=== PATIENT | female | born 1980 | race American Indian/Alaskan Native ===

== ENCOUNTER 2017-05-13 15:17 | Emergency (ER) | payer SELFPAY ==
[2017-05-13 15:37] VITALS: BP 122/61
--- NOTE | 2017-05-13 17:17 | XRay Report ---
FINAL REPORT EXAM: XR TIBIA FIBULA 2V RT HISTORY: pain r haddad TECHNIQUE: Four views right tibia and fibula Comparison: None FINDINGS: Normal bony mineralization. No fracture dislocation. No radiopaque foreign body or soft tissue gas. No cortical abnormality. There is no focal lytic or blastic lesion. IMPRESSION: Normal right tibia and fibula. No trauma was reported.
--- NOTE | 2017-05-13 17:18 | XRay Report ---
FINAL REPORT EXAM: XR ANKLE 3+V RT HISTORY: pain TECHNIQUE: Three views right ankle Comparison: None FINDINGS: Normal bony mineralization. No fracture or dislocation. Mortise is preserved. Plafond is intact. There is no ankle joint effusion identified. Soft tissue density of the distal Achilles tendon is identified. There is no radiopaque foreign body or soft tissue gas. IMPRESSION: No acute abnormality right ankle. Specifically, no fracture or dislocation.
--- NOTE | 2017-05-13 17:47 | XRay Report ---
FINAL REPORT EXAM: XR FOOT 3+V RT HISTORY: pain TECHNIQUE: Three views right foot Comparison: None FINDINGS: Normal bony mineralization. No acute fracture or dislocation. No radiopaque foreign body or soft tissue gas. IMPRESSION: No acute abnormality of the right foot identified.
[2017-05-13] MEDS ORDERED: TYLENOL PO ONE (19:12)
--- NOTE | 2017-05-13 19:14 | Emergency Department Report ---
ED Lower Extremity HPI - General Chief Complaint: Extremity Injury, Lower Stated Complaint: LEG/FOOT PAIN RIGHT Time Seen by Provider: 05/13/17 19:10 Source: patient Mode of arrival: Ambulatory Limitations: No Limitations - History of Present Illness Complaint: other (rle injury last pm. cooler door fell on and down her leg) -: Sudden Injury: Ankle: Right, Foot: Right Type of Injury: blunt Severity: mild Improves With: nothing Worsens With: nothing Context: direct blow - Related Data Previous Rx's Medication Instructions Recorded Last Taken Type Cyclobenzaprine [Flexeril] 10 mg PO TID #12 tab 01/12/13 Unknown Rx Hydrocodone Bit/Acetaminophen 1 each PO Q6H PRN #12 tablet 01/12/13 Unknown Rx [Lortab 5-500 Tablet] Allergies Allergy/AdvReac Type Severity Reaction Status Date / Time No Known Allergies Allergy Unverified 01/12/13 19:33 ED Review of Systems ROS: Stated complaint: LEG/FOOT PAIN RIGHT Other details as noted in HPI Comment: All other systems reviewed and negative Musculoskeletal: other (rle pain from mid haddad to foot) ED Past Medical Hx - Past Medical History Previous Medical History?: No - Surgical History Past Surgical History?: No - Social History Smoking Status: Current Some Day Smoker Substance Use Type: Alcohol - Medications Home Medications: Home Medications Medication Instructions Recorded Confirmed Last Taken Type Cyclobenzaprine [Flexeril] 10 mg PO TID #12 tab 01/12/13 Unknown Rx Hydrocodone Bit/Acetaminophen 1 each PO Q6H PRN #12 tablet 01/12/13 Unknown Rx [Lortab 5-500 Tablet] ED Physical Exam - General Limitations: No Limitations General appearance: alert - Head Head exam: Present: atraumatic - Eye Eye exam: Present: normal appearance - ENT ENT exam: Present: normal exam - Neck Neck exam: Present: normal inspection - Respiratory Respiratory exam: Present: normal lung sounds bilaterally - Cardiovascular Cardiovascular Exam: Present: regular rate - GI/Abdominal GI/Abdominal exam: Present: soft - Rectal Rectal exam: Present: deferred - Expanded Lower Extremity Exam Right Upper Leg exam: Present: normal inspection Knee exam: Present: normal inspection Lower Leg exam: Present: swelling, ecchymosis Ankle exam: Present: normal inspection Foot/Toe exam: Present: normal inspection 1 - mild swelling and contusion ED Course Vital Signs 05/13/17 15:35 Temperature 98.8 F Pulse Rate 94 H Respiratory 16 Rate Blood Pressure 122/61 O2 Sat by Pulse 98 Oximetry ED Lower Extremity MDM - Radiology Data Radiology results: report reviewed, image reviewed - Medical Decision Making see note - Differential Diagnosis ro fx Critical care attestation.: If time is entered above; I have spent that time in minutes in the direct care of this critically ill patient, excluding procedure time. ED Disposition Clinical Impression: Contusion Disposition: DC- TO HOME OR SELFCARE Is pt being admited?: No Does the pt Need Aspirin: No Condition: Stable Instructions: Contusion in Adults (ED) Additional Instructions: rest elevate warm compresses motrin or tylenol for pain Primary care physician if your symptoms persist after 72 hours. Note x-rays were all normal today Referrals: PRIMARY CARE, [Primary Care Provider] - 3-5 Days EZIO SALAS MD [Staff Physician] - 3-5 Days Time of Disposition: 19:13
== END 2017-05-13 19:22 | disposition home or self-care (01) ==
LOC: ED 15:17
DX: S80.11XA Contusion of right lower leg, initial encounter (principal); F17.200 Nicotine dependence, unspecified, uncomplicated; W31.89XA Contact with other specified machinery, initial encounter; Y93.89 Activity, other specified; Y99.8 Other external cause status; Y92.89 Other specified places as the place of occurrence of the external cause
CPT/HCPCS: 99283

== ENCOUNTER 2018-08-06 22:46 | Emergency (ER) | payer MEDICAID, OTHER ==
--- NOTE | 2018-08-06 22:57 | Emergency Department Report ---
Stated Complaint: RT SIDE ABD PAIN, 3MTHS PREG,VAG DC Time Seen by Provider: 08/06/18 22:55 - HPI History of Present Illness: preg g5 dark tinged vag dc mse completed MSE screening note: Focused history and physical exam performed. Due to findings the following was ordered: ED Disposition for MSE Condition: Stable
[2018-08-06 23:02] VITALS: BP 129/62
[2018-08-06 23:48] LABS: BUN/Creatinine Ratio 16; Blood Urea Nitrogen 11 mg/dL (7-17); Calcium 9.1 mg/dL (8.4-10.2); Hemolysis Index 4
[2018-08-07 00:25] LABS: Hematocrit 39.1 % (30.3-42.9); Hemoglobin 12.6 gm/dl (10.1-14.3); Mean Corpuscular HGB Conc 32 % (30-34); Mean Corpuscular Volume 87 fl (79-97); Platelet Count 297 K/mm3 (140-440); Red Blood Count 4.49 M/mm3 (3.65-5.03); Red Cell Distribution Width 14.2 % (13.2-15.2)
[2018-08-07 00:53] LABS: Bilirubin,Urine NEG (Negative); Blood,Urine NEG (Negative); Color,Urine Yellow (Yellow); Mucus,Urine FEW /HPF; Protein,Urine <15 mg/dL mg/dL (Negative)
--- NOTE | 2018-08-07 02:00 | Ultrasound Report ---
PROCEDURE: US OB TRANSVAGINAL TECHNIQUE: Real-time transvaginal sonography of the uterus, placenta, amniotic fluid, adnexa, and fe tus was performed with image documentation. Measurements were obtained to determine age/size. M -mode Doppler was used to document heartbeat. ADDITIONAL GESTATION: None. HISTORY: dark vag dc COMPARISONS: None . FINDINGS: CRL: 30.2 mm, which corresponds to a gestational age of: 9 weeks, 6 days. Yolk Sac: Appropriate for gestational age. . Embryonic Cardiac Activity: 169 bpm . Gestational Sac: Size and shape are appropriate for gestational age Placenta: Normal Amniotic fluid: Appropriate for gestational age. Cervix: Normal. Right Ovary: Normal . Left Ovary: Normal . Estimated delivery date: 03/06/2019 . Uterus and adnexa: Normal. IMPRESSION: Single live intrauterine gestation at approximately 9 weeks and 6 days . EDC by US 02/21 . This document is electronically signed by Jarod Gomez MD., August 07 2018 01:58:36 AM ET
--- NOTE | 2018-08-07 02:00 | Ultrasound Report ---
PROCEDURE: US OB <= 14 WEEKS FETUS TECHNIQUE: Real-time transabdominal sonography of the uterus, placenta, amniotic fluid, adnexa, and fetus was performed with image documentation. Measurements were obtained to determine age/size. M-mode Doppler was used to document heartbeat. ADDITIONAL GESTATION: None. HISTORY: dark vag dc COMPARISONS: None . FINDINGS: CRL: 30.2 mm, which corresponds to a gestational age of: 9 weeks, 6 days. Yolk Sac: Appropriate for gestational age. . Embryonic Cardiac Activity: 169 bpm . Gestational Sac: Size and shape are appropriate for gestational age Placenta: Normal Amniotic fluid: Appropriate for gestational age. Cervix: Normal. Right Ovary: Normal . Left Ovary: Normal . Estimated delivery date: 03/06/2019 . Uterus and adnexa: Normal. IMPRESSION: Single live intrauterine gestation at approximately 9 weeks and 6 days . EDC by US 02/21 . This document is electronically signed by Jarod Gomez MD., August 07 2018 01:58:08 AM ET
--- NOTE | 2018-08-07 03:16 | Emergency Department Report ---
ED Female HPI - General Chief complaint: Abdominal Pain Stated complaint: RT SIDE ABD PAIN, 3MTHS PREG,VAG DC Time Seen by Provider: 08/06/18 22:55 Source: patient Mode of arrival: Ambulatory Limitations: No Limitations - History of Present Illness Initial comments: 38-year-old female presents to the emergency room for right lower abdominal pain for 3 days. She denies any vaginal bleeding. Patient is 5 para 4. She's had 2 preemies at 32 week or which was 4 lbs. 1 oz. and a 35 week or which is 4 pounds and 3. Patient reports that she is currently being followed by [facility] in [place]. Patient has not started care as of yet. Patient reports that she has an appointment on Sunday. Patient reports that the right abdominal pain shoots down to her vaginal area. Patient also complains of vaginal discharge. Patient denies any smoking no smoking weed no alcohol use or illicit drug use. Patient reports she is about 3 months . Last menstrual period was 05/13/2017. Complaint: pelvic pain -: days(s) (3) Location: RLQ Radiation: other (vaginal area) Severity scale (0 -10): 8 Quality: sharp, stabbing Consistency: intermittent Are you Now?: Yes Last Menstrual Period: 05/10/18 EDC: 02/14/19 Associated Symptoms: vaginal discharge - Related Data Sexually active: Yes : 5 A: 4 Previous Rx's Medication Instructions Recorded Last Taken Type Cyclobenzaprine [Flexeril] 10 mg PO TID #12 tab 01/12/13 Unknown Rx Hydrocodone Bit/Acetaminophen 1 each PO Q6H PRN #12 tablet 01/12/13 Unknown Rx [Lortab 5-500 Tablet] Allergies Allergy/AdvReac Type Severity Reaction Status Date / Time No Known Allergies Allergy Unverified 01/12/13 19:33 ED Review of Systems ROS: Stated complaint: RT SIDE ABD PAIN, 3MTHS PREG,VAG DC Other details as noted in HPI Comment: All other systems reviewed and negative Gastrointestinal: abdominal pain Genitourinary: discharge ED Past Medical Hx - Past Medical History Previous Medical History?: No - Surgical History Past Surgical History?: No - Social History Smoking Status: Never Smoker Substance Use Type: None - Medications Home Medications: Home Medications Medication Instructions Recorded Confirmed Last Taken Type Cyclobenzaprine [Flexeril] 10 mg PO TID #12 tab 01/12/13 Unknown Rx Hydrocodone Bit/Acetaminophen 1 each PO Q6H PRN #12 tablet 01/12/13 Unknown Rx [Lortab 5-500 Tablet] ED Physical Exam - General Limitations: No Limitations General appearance: alert, in no apparent distress - Head Head exam: Present: atraumatic, normocephalic - Eye Eye exam: Present: normal appearance - ENT ENT exam: Present: mucous membranes moist - Cardiovascular Cardiovascular Exam: Present: regular rate, normal rhythm. Absent: systolic murmur, diastolic murmur, rubs, gallop - GI/Abdominal GI/Abdominal exam: Present: tenderness (rl pelvic). Absent: distended - External exam: Present: normal external exam Speculum exam: Present: vaginal discharge, cervical discharge Bi-manual exam: Present: normal bi-manual exam, uterine tenderness (rt). Absent: cervical motion tendernes, adnexal tenderness, uterine enlargement - Extremities Exam Extremities exam: Present: normal inspection, full ROM - Back Exam Back exam: Present: full ROM - Neurological Exam Neurological exam: Present: alert, oriented X3, normal gait - Psychiatric Psychiatric exam: Present: normal affect, normal mood - Skin Skin exam: Present: warm, dry, intact, normal color. Absent: rash ED Course Vital Signs 08/06/18 23:01 Temperature 98.3 F Pulse Rate 98 H Respiratory 16 Rate Blood Pressure 129/62 O2 Sat by Pulse 97 Oximetry ED Medical Decision Making - Lab Data Result diagrams: 08/06/18 23:51 08/06/18 23:10 - Radiology Data Radiology results: report reviewed Patient: ROCHELLE PEÑA MR#: [id number] : 1980 Acct:[id number] Age/Sex: 38 / F ADM Date: 08/06/18 Loc: ED Attending Dr: Ordering Physician: JEREMY PAUL Date of Service: 08/06/18 Procedure(s): US OB transvaginal Accession Number(s): [id number] cc: JEREMY PAUL PROCEDURE: US OB TRANSVAGINAL TECHNIQUE: Real-time transvaginal sonography of the uterus, placenta, amniotic fluid, adnexa, and fetus was performed with image documentation. Measurements were obtained to determine age/size. M-mode Doppler was used to document heartbeat. ADDITIONAL GESTATION: None. HISTORY: dark vag dc COMPARISONS: None . FINDINGS: CRL: 30.2 mm, which corresponds to a gestational age of: 9 weeks, 6 days. Yolk Sac: Appropriate for gestational age. . Embryonic Cardiac Activity: 169 bpm . Gestational Sac: Size and shape are appropriate for gestational age Placenta: Normal Amniotic fluid: Appropriate for gestational age. Cervix: Normal. Right Ovary: Normal . Left Ovary: Normal . Estimated delivery date: 03/06/2019 . Uterus and adnexa: Normal. IMPRESSION: Single live intrauterine gestation at approximately 9 weeks and 6 days . EDC by US 03/06/2019 . This document is electronically signed by Sofy Johnson MD., August 07 2018 01:58:36 AM ET Transcribed By: CO Dictated By: SOFY JOHNSON MD Electronically Authenticated By: SOFY JOHNSON MD Signed Date/Time: 08/07/18 0200 DD/ 2300 TD/TT: 08/07/18 0126 - Medical Decision Making Patient has been evaluated by this provider in fast track. Ultrasound shows single intrauterine gestation approximately 9 weeks and 2 days. Wet prep shows less than 20% clue cells no Yeast no Trichomonas. Patient encouraged to take Tylenol for pain management. Patient is encouraged to keep her appointment with [facility] in [place]. Critical care attestation.: If time is entered above; I have spent that time in minutes in the direct care of this critically ill patient, excluding procedure time. ED Disposition Clinical Impression: Pelvic pain during , Vaginal discharge during in first trimester Disposition: DC-01 TO HOME OR SELFCARE Is pt being admited?: No Does the pt Need Aspirin: No Condition: Stable Instructions: Abdominal Pain (ED) Additional Instructions: Keep your appointment with her [facility] on Sunday. Tylenol for pain management as needed. You may bring your picture ID to medical records here at the hospital to obtain urine cultures for gonorrhea and chlamydia and 3-7 days. Referrals: [facility] [Provider Group] - 3-5 Days
== END 2018-08-07 03:50 | disposition home or self-care (01) ==
LOC: ED 22:46
DX: O26.891 Other specified pregnancy related conditions, first trimester (principal); R10.2 Pelvic and perineal pain; Z3A.12 12 weeks gestation of pregnancy
CPT/HCPCS: 36415; 76801; 76817; 80048; 81001; 84702; 85027; 86900; 86901; 87210; 87591; 99284